=== PATIENT | female | born 1990 | race African-American/Black ===

== ENCOUNTER 2019-08-11 07:46 | Day surgery (SDC) | payer OTHER ==
[2019-08-10 15:09] VITALS: BMI 20.6
[2019-08-11] MEDS ORDERED: BUPIVACAINE HCL/PF 0.25% (2.5MG/ML) 10 ML VIAL ONE (10:43)
[2019-08-11] MEDS ORDERED: ACETAMINOPHEN 325 MG TABLET (FP) PO PRN ×2 (11:54)
--- NOTE | 2019-08-11 11:58 | OP ---
Operative Note - Note: Operative Date: 08/11/19 Pre-Operative Diagnosis: urethral diverticulum Operation: urethral diverticulectomy Post-Operative Diagnosis: Same as Pre-op Surgeon: Eli Moreno Anesthesia: General Specimens Removed: diverticulur sac Estimated Blood Loss (mls): 10 Drains, Volume Out (mls): 0 Operative Report Dictated: Yes
[2019-08-11] MEDS ORDERED: MIDAZOLAM HCL 2 MG/2 ML SINGLE DOSE VIAL ONE (12:21)
[2019-08-11] MEDS ORDERED: PROPOFOL 20 ML ONE (12:22)
[2019-08-11] MEDS ORDERED: ceFAZolin SODIUM 1 GM VIAL IVPB ONE (12:30)
[2019-08-11] MEDS ORDERED: LIDOCAINE 1%-EPI 1:100,000 30 ML MDV IJ ONE (12:41)
[2019-08-11] MEDS ORDERED: oxyCODONE HCL 5 MG TABLET PO PRN (13:01)
[2019-08-11] MEDS ORDERED: BACITRACIN 15 GM TUBE TOPICAL OINTMENT TP ONE (13:08)
[2019-08-11] MEDS ORDERED: ONDANSETRON 4 MG/2 ML VIAL IVPUSH PRN (14:36)
[2019-08-11] MEDS ORDERED: PROMETHAZINE HCL 25 MG/1 ML VIAL IVPB PRN (14:36)
[2019-08-11] MEDS ORDERED: LACTATED RINGERS SOLUTION 1,000 ML IV SCH (14:45)
--- NOTE | 2019-08-11 17:12 | CONS ---
DATE OF CONSULTATION: 08/11/2019 Patient is a 28-year-old female with history of a urethral diverticulum. She has been having recurrent urinary tract infections and persistent microscopic hematuria. She was to undergo a urethral diverticulectomy last year, but was , and presently, she is and is having the elective urethral diverticulectomy. Her LMP was on April 29, 2019. She denies any allergies, diabetes. She denies ethanolism or tobacco. Patient is G2, P1. PHYSICAL EXAMINATION: Abdomen: Soft. Chest: Clear. Back: No CVA tenderness is noted. Genitalia: Revealed a grade 1 cystocele. Gopi test is negative. Vaginal mucosa is normal. A cystoscopy in the office revealed a mid-urethral diverticulum approximately 0.5 cm in diameter and 1 cm in depth. She denies any previous surgeries. Her BUN is 60 and creatinine 0.5. Urinalysis is heme positive. 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 PLAN: Is to undergo a transvaginal urethral diverticulectomy. This was explained fully to patient and she agrees. Pieter [id number]
--- NOTE | 2019-08-11 17:23 | OP ---
DATE OF OPERATION: 08/11/2019 PREOPERATIVE DIAGNOSES: Urethral diverticulum, recurrent urinary tract infections. POSTOPERATIVE DIAGNOSES: Urethral diverticulum, recurrent urinary tract infections. OPERATIVE PROCEDURE: Urethral diverticulectomy and cystoscopy. ANESTHESIA: General. Under above-stated anesthesia, patient was prepped and draped in the usual sterile manner. She is placed in the dorsal lithotomy position. Stay sutures were placed on either side of the labia majora. A 16 Cuadra was inserted into the urethra. A weighted vaginal speculum was placed on the floor of the vagina. Inspection of the roof of the vagina revealed a grade 2 cystocele. The roof was infiltrated with lidocaine with epinephrine for hemostasis. A vertical incision was made from the mid urethra to the mid portion of the vaginal orifice. This was carried down through skin and subcutaneous tissue using both blunt and sharp dissection. The urethrovesical angle and the urethra were palpated from the roof of the vagina. A bulge was seen in the mid urethra which was the diverticulum. Urethroscopy revealed a 4 cm x 1 cm mid-urethral diverticulum. Using sharp dissection, a circumferential incision was made encompassing the entire diverticulum. Urethral mucosa was debrided. The urethra was closed with 2 layers of 3-0 Vicryl suture ligature and 2-0 Vicryl suture ligature. The base of the bladder was then plicated using 3-0 Vicryl suture ligatures. Excess vaginal mucosa was excised. The roof of the vagina was closed with running interlocking 3-0 Vicryl suture ligatures. Cuadra catheter was connected to a leg bag. Vaginal packing was placed for hemostasis. The patient tolerated the procedure well. She returned to the recovery room in good condition. Pieter [id number]
[2019-08-11 19:12] VITALS: BP 133/84; PULSE 94; TEMP 98.6
--- NOTE | 2019-08-15 17:04 | PATH ---
Surgical Pathology Report Patient Name: SETH BANG [facility]. Rec. #: [id number] /Age/Gender: 1990 (Age: 28) / F Account: [id number] Location: [facility] Taken: 08/11/2019 Received: 08/11/2019 Reported: 08/15/2019 Physicians: Eli Moreno M.D. Specimen(s) Received VAGINAL MUCOSA Clinical History Urethral diverticulum Final Diagnosis VAGINAL MUCOSA, EXCISION: VAGINAL SQUAMOUS MUCOSA WITHOUT SIGNIFICANT PATHOLOGIC FINDINGS. Electronically Signed Janey Lazcano M.D. Gross Description Received in formalin labeled "vaginal mucosa," is a 2.3 x 1.5 x 0.3 cm aggregate of multiple minaya portions of mucosal tissue, consistent with vaginal mucosa. No definitive lesions are identified. Servicer sections are submitted in one cassette. /08/14/2019 saudi08/14/2019
== END 2019-08-11 18:15 | disposition home or self-care (01) ==
LOC: JASU-SURG 07:46 → EDBD 10:00 → JASU-SURG 18:15
PROVIDERS: ATTEND Urology
PROC: 0TBD0ZZ Excision of Urethra, Open Approach (ICD-10-PCS; principal; 2019-08-11 14:00)
DX: N36.1 Urethral diverticulum (principal); Z87.440 Personal history of urinary (tract) infections
CPT/HCPCS: 84703; 88302-TC; 94760

== ENCOUNTER 2019-08-12 10:09 | Emergency (ER) | payer OTHER ==
[2019-08-12 10:18] VITALS: BP 118/71; PULSE 110; TEMP 98.6; BMI 23.9
--- NOTE | 2019-08-12 10:48 | PDOC ---
History of Present Illness - General History Source: Patient Exam Limitations: No Limitations <Mandy Gonzalez - Last Filed: 08/12/19 10:41> <Erin Correa - Last Filed: 08/12/19 10:54> - General Chief Complaint: Pain Stated Complaint: CATHETER ROMOVAL Time Seen by Provider: 08/12/19 10:17 Past History - Psycho Social/Smoking Cessation Hx Smoking History: Unknown if ever smoked Number of Cigarettes Smoked Daily: 1 Hx Alcohol Use: Yes (RARE) Drug/Substance Use Hx: No Substance Use Type: None <Mandy Gonzalez - Last Filed: 08/12/19 10:41> <Erin Correa - Last Filed: 08/12/19 10:54> - Past Medical History Allergies/Adverse Reactions: Allergies Allergy/AdvReac Type Severity Reaction Status Date / Time No Known Allergies Allergy Verified 08/12/19 10:12 Home Medications: Ambulatory Orders Oxycodone HCl/Acetaminophen [Percocet 5-325 mg Tablet] 1 tab PO Q6H PRN Review of Systems - Review of Systems Able to Perform ROS?: Yes Constitutional: Yes: See HPI. No: Fever HEENTM: Yes: See HPI Respiratory: Yes: See HPI Cardiac (ROS): Yes: See HPI ABD/GI: Yes: See HPI : Yes: See HPI, Other (saleem in place). No: Burning, Flank Pain, Hematuria, Incontinence, Pain Musculoskeletal: Yes: See HPI Integumentary: Yes: See HPI Neurological: Yes: See HPI Endocrine: Yes: See HPI Hematologic/Lymphatic: Yes: See HPI All Other Systems: Reviewed and Negative <Erin Correa - Last Filed: 08/12/19 10:54> *Physical Exam - Vital Signs Last Vital Signs Temp Pulse Resp BP Pulse Ox 98.6 F 110 H 18 118/71 98 08/12/19 10:14 08/12/19 10:14 08/12/19 10:14 08/12/19 10:14 08/12/19 10:14 - Physical Exam General Appearance: No: Apparent Distress Respiratory/Chest: positive: Lungs Clear, Normal Breath Sounds. negative: Respiratory Distress Cardiovascular: positive: Regular Rhythm, Regular Rate, S1, S2. negative: Murmur Female Pelvic Exam: positive: other (vaginal packing in place) Gastrointestinal/Abdominal: positive: Normal Bowel Sounds, Soft, Other (leg saleem bag on side draining clear yellow urine). negative: Tender, Distended, Guarding, Rebound Neurologic: positive: Alert, Normal Mood/Affect <Mandy Gonzalez - Last Filed: 08/12/19 10:41> - Vital Signs Last Vital Signs Temp Pulse Resp BP Pulse Ox 98.6 F 110 H 18 118/71 98 08/12/19 10:14 08/12/19 10:14 08/12/19 10:14 08/12/19 10:14 08/12/19 10:14 <Erin Correa - Last Filed: 08/12/19 10:54> Medical Decision Making - Medical Decision Making 28 y/o F with no sig pmh presents for saleem removal. Patient was seen at Dr. Moreno office yesterday for urethral diverticulectomy and had saleem placed. Patient was instructed to come back today at 10 AM for saleem removal. However, states the office was closed when she went. Denies fever, sob, cp, abd pain, n/v , hematuria. Spoke to Dr. Moreno, who states he was going to see the patient at 11 AM States okay to remove the saleem along with vaginal packing and patient does not need to see him today States patient can f/u with him in 2 days at 1 PM Saleem bag and vaginal packing was removed 08/12/19 10:42 <Mandy Gonzalez - Last Filed: 08/12/19 10:41> - Medical Decision Making The patient was seen and evaluated in conjunction with midlevel provider under my direct supervision, ancillary studies were reviewed. I agree with the plan as outlined with MARTA Gonzalez. HPI, workup/dispo as outlined. VS reviewed, mild tachy, but nontoxic and well appearing. saleem removed. f/u Dr Moreno on . anticipate discharge, pcp followup, return precautions 08/12/19 10:52 08/12/19 10:54 <Erin Correa - Last Filed: 08/12/19 10:54> Discharge - Discharge Information Problems reviewed: Yes - Admission No - Additional Discharge Information Prescription Drug Monitoring Program (I-STOP) results: I-STOP not reviewed <Mandy Gonzalez - Last Filed: 08/12/19 10:41> <MadelineErinpeter Ochoa - Last Filed: 08/12/19 10:54> - Discharge Information Clinical Impression/Diagnosis: Encounter for Saleem catheter removal Condition: Stable Disposition: HOME - Follow up/Referral Referrals: Eli Moreno MD [Staff Physician] - 08/14/19 1:00 pm - Patient Discharge Instructions Additional Instructions: Thank you for choosing [facility]. It was a pleasure taking care of you. You had your Saleem and vaginal packing removed Please follow-up with Dr. Moreno on 08/14 at 1 PM Return to the Emergency Department if you have fever, severe abdominal/pelvic pain, vomiting or other concerning symptoms. - Post Discharge Activity
== END 2019-08-12 10:50 | disposition home or self-care (01) ==
LOC: JER 10:09 → SUPCPDRO 10:09 → JER 10:50
DX: Z48.816 Encounter for surgical aftercare following surgery on the genitourinary system (principal); Z46.6 Encounter for fitting and adjustment of urinary device; Z48.01 Encounter for change or removal of surgical wound dressing
CPT/HCPCS: 99282-25